=== PATIENT | female | born 2000 ===

== ENCOUNTER 2021-02-16 17:02 | Observation (INO) ==
[2021-02-16 20:01] LABS: Hematocrit 40 % (35-47); Hemoglobin 13.5 g/dL (12.0-16.0); Mean Corpuscular HGB Conc 34 g/dL (31-36); Mean Corpuscular Hemoglobin 31 pg (27-31); Mean Corpuscular Volume 92 fL (80-97); Mean Platelet Volume 7.8 fL (7.4-10.4); Platelet Count 383 10^3/uL (150-450); Red Blood Count 4.29 10^6 /uL (3.70-4.87); Red Cell Distribution Width 13 % (10-15); White Blood Count 24.8 10^3/uL (3.5-10.8)
[2021-02-16 20:04] LABS: ABS Neutrophils 22.8 10^3/ul (1.5-7.7); Lymphocyte % 4.2 %
[2021-02-16 20:21] LABS: ALT 7 U/L (7-52); AST 15 U/L (13-39); Albumin 4.7 g/dL (3.2-5.2); Albumin/Globulin Ratio 1.4 (1-3); Alkaline Phosphatase 61 U/L (35-149); Anion Gap 9 mmol/L (2-11); Blood Urea Nitrogen 14 mg/dL (6-24); C Reactive Protein 81.54 mg/L (<8.01); CO2 Carbon Dioxide 25 mmol/L (22-32); Calcium 9.8 mg/dL (8.6-10.3); Chloride 102 mmol/L (101-111); Globulin 3.4 g/dL (2-4); Glucose 108 mg/dL (70-100); Lipase < 10 U/L (11.0-82.0); Potassium 3.9 mmol/L (3.5-5.0); Sodium 136 mmol/L (135-145); Total Protein 8.1 g/dL (6.4-8.9)
[2021-02-16 20:26] LABS: HCG Pregnancy < 0.60 mIU/mL
[2021-02-16] MEDS ORDERED: Iohexol 300 (CONTRAST) 10 ML SDV IV ONE (20:48)
[2021-02-16] MEDS ORDERED: Morphine 4 MG/ML VIAL (1 ml) IV PRN (22:41)
[2021-02-16] MEDS ORDERED: Droperidol 5 MG/2 ML 2 ML VIAL IV ONE (22:41)
[2021-02-16] MEDS ORDERED: NS 0.9% 1000 ml BAG 2,000 ML IV ONE (22:41)
[2021-02-16] MEDS ORDERED: Morphine 4 MG/ML VIAL (1 ml) IV ONE (22:41)
[2021-02-16] MEDS ORDERED: Piperacillin/Tazobac ADVAN 3.375 GM in NS 0.9% 100 ml BAG 100 ML IV ONE (22:42)
[2021-02-16] MEDS ORDERED: Piperacillin/Tazobac 3.375 GM BAG ONE (22:53)
[2021-02-16] MEDS ORDERED: HYDROmorphone 0.5 MG/0.5 ML SYRINGE IV SLOW PU PRN (23:54)
[2021-02-16] MEDS ORDERED: Ondansetron 4 mg VIAL 2 MG/ML 2 ml VIAL IV PRN (23:54)
[2021-02-17 01:09] LABS: Rapid COVID-19 Molecular Undetected (Undetected)
[2021-02-17] MEDS: NS 0.9% 1000 ml BAG 1,000 ML IV SCH ×2 (02:12→12:07)
[2021-02-17] MEDS: Piperacillin/Tazobactam VIAL 3.375 GM in NS 0.9% 100 ml BAG 100 ML IVPB SCH ×2 (04:26→12:07)
[2021-02-17 06:58] LABS: Urine Appearance Clear; Urine Bacteria Absent (Absent); Urine Bilirubin Negative (Negative); Urine Blood Negative (Negative); Urine Color Yellow; Urine Glucose Negative (Negative); Urine Ketones 1+ (Negative); Urine Nitrite Negative (Negative); Urine Protein 1+(30 mg/dL) (Negative); Urine Red Blood Cell 1+(3-5/hpf) (Absent); Urine Squamous Epithelial Cell Present (Absent); Urine Urobilinogen Negative (Negative); Urine White Blood Cell 1+(6-10/hpf) (Absent)
[2021-02-17 07:07] LABS: Urine Specific Gravity > 1.060 (1.002-1.030)
[2021-02-17] MEDS ORDERED: Bupivacaine 0.25% SDV PF 10 ML VIAL INJ ONE (13:31)
[2021-02-17] MEDS ORDERED: Dexamethasone IV 4 MG/ML VIAL 1 ml VIAL ONE (13:34)
[2021-02-17] MEDS ORDERED: HYDROmorphone 1 MG/1 ML SYRINGE ONE (13:34)
[2021-02-17] MEDS ORDERED: Ondansetron 4 mg VIAL 2 MG/ML 2 ml VIAL ONE (13:34)
[2021-02-17] MEDS ORDERED: Propofol 10 MG/ML 20 ML BTL ONE (13:34)
[2021-02-17] MEDS ORDERED: Glycopyrrolate IV 0.2 MG/ML 1 ML VIAL ONE (13:34)
[2021-02-17] MEDS ORDERED: Lidocaine 2% PF 5 ML VIAL ONE ×2 (13:35→14:46)
[2021-02-17] MEDS ORDERED: Rocuronium 50 mg VIAL 10 mg/ml 5 ml VIAL (50 mg) ONE (13:36)
[2021-02-17] MEDS ORDERED: Acetaminophen IV 1 GM/100ML 100 ML IV ONE (14:41)
[2021-02-17] MEDS ORDERED: HYDROmorphone 1 MG/1 ML SYRINGE IV PRN (15:28)
[2021-02-17] MEDS ORDERED: DiMENhydriNATE IV 50 mg/ml 1 ml VIAL IV PUSH PRN (15:28)
[2021-02-17] MEDS ORDERED: Naloxone 0.4 mg VIAL 0.4 mg/ml 1 ml VIAL IV PRN (15:28)
[2021-02-17] MEDS ORDERED: DiMENhydriNATE IV 50 mg/ml 1 ml VIAL ONE (16:31)
[2021-02-17 16:46] VITALS: BP 108/62
== END 2021-02-17 16:00 | disposition home or self-care (01) ==
LOC: ED 17:02 → INTOOBSV 23:54 → SSU 23:54
PROVIDERS: ADMIT Surgery Surgical Critical Care; ATTEND Surgery Surgical Critical Care